=== PATIENT | female | born 1985 | race Caucasian/White ===

== ENCOUNTER 2018-08-20 06:55 | Emergency (ER) | payer OTHER ==
[2018-08-20 06:58] VITALS: BP 129/86
--- NOTE | 2018-08-20 07:22 | EDPHY ---
H & P Time Seen by Provider: 08/20/18 07:06 HPI/ROS: CHIEF COMPLAINT: Swollen throat HISTORY OF PRESENT ILLNESS: Patient was 1st diagnosed with strep throat 3 and half weeks ago was treated initially with amoxicillin but developed hives, and then was treated with azithromycin and felt better for 24-48 hours. Subsequently she developed a chest cold with coughing and wheezing and had a negative chest x-ray and a negative strep test by her report at urgent care, and was given albuterol last week. She still had a lot of coughing and then woke up about 30 min ago with swelling in her throat and a feeling that her uvula was larger. Symptoms moderate, not associated with hives or skin rash or itching. Slightly different voice. No fever or chills and no difficulty swallowing. Symptoms moderate. REVIEW OF SYSTEMS: Eye: no change in vision ENT: HPI no ear or dental symptoms Cardiac: no chest pain or syncope Pulmonary: HPI Abdomen: no vomiting, diarrhea, abdominal pain; some nausea Musculoskeletal: No leg swelling Skin: No hives Neuro: no headache Constitutional: no fever : no urinary symptoms A comprehensive 10 point review of systems is otherwise negative aside from elements mentioned in the history of present illness. PAST MEDICAL HISTORY: Includes splenectomy for ITP at 11 years old, she has had pneumococcal vaccine Social history: No recent foreign travel General Appearance: Alert and conversant, cooperative. Eyes: No scleral icterus. ENT, Mouth: Patient has uvular swelling but it is midline. There is no peritonsillar swelling. No stridor or drooling. Voice is slightly altered but not muffled. Dentition and gums are normal, tympanic membranes are normal. Respiratory: Patient has bilateral wheezing but no rhonchi or rales. No stridor. Cardiovascular: Regular rate and rhythm. Gastrointestinal: Abdomen is soft and non tender. Neurological: Alert, face symmetric, normal motor and sensory in extremities. Skin: No urticaria. Musculoskeletal: No peripheral edema. Psychiatric: Not agitated. Emergency Department course/MDM: Patient has isolated uvular swelling likely from all the severe coughing she has been doing. She does not have evidence of retropharyngeal abscess or epiglottitis, peritonsillar abscess, anaphylaxis. Steroids discussed and consented with the patient. Encouraged to use her albuterol inhaler. I do not think that she is likely to have an acute bacterial infection. Smoking Status: Current every day smoker Constitutional: Initial Vital Signs Temperature (C) 37.0 C 08/20/18 06:56 Heart Rate 93 08/20/18 06:56 Respiratory Rate 18 08/20/18 06:56 Blood Pressure 129/86 H 11 06:56 O2 Sat (%) 97 08/20/18 06:56 O2 Delivery Mode Room Air Allergies/Adverse Reactions: Penicillins Allergy (Verified 08/20/18 06:59) sulfamethoxazole [From Bactrim] Allergy (Verified 08/20/18 06:59) trimethoprim [From Bactrim] Allergy (Verified 08/20/18 06:59) Home Medications: Medication Instructions Recorded Albuterol 08/20/18 predniSONE [prednisone 20mg (RX)] 40 mg PO DAILY 4 Days tab 08/20/18 MDM/Departure - [facility] Medications Given: Discontinued Medications Prednisone (Prednisone) 60 mg PO EDNOW ONE Stop: 08/20/18 07:25 Last Admin: 08/20/18 07:31 Dose: 60 mg - Depart Disposition: Home, Routine, Self-Care Clinical Impression: Uvular swelling Condition: Good Instructions: Prednisone (By mouth), Uvulitis (ED) Additional Instructions: Use the albuterol inhaler 2 puffs every 6 hr for the next 3-5 days. Please return immediately if you have trouble breathing or swallowing. Prescriptions: predniSONE [prednisone 20mg (RX)] 40 mg PO DAILY 4 Days tab Referrals: Albert Gibson MD [Medical Doctor] - As per Instructions (24-48 hour followup if not improving)
[2018-08-20] MEDS ORDERED: predniSONE 20 MG TAB PO ONE (07:24)
== END 2018-08-20 07:50 | disposition home or self-care (01) ==
DX: K13.70 Unspecified lesions of oral mucosa (principal); F17.200 Nicotine dependence, unspecified, uncomplicated
CPT/HCPCS: J7512

== ENCOUNTER → 2019-03-01 | Outpatient (CLI) | payer OTHER | LOC: FIMAGING 09:26 | PROVIDERS: ATTEND Midwife | DX: O36.5920 Maternal care for other known or suspected poor fetal growth, second trimester, not applicable or unspecified (principal); O36.5120 Maternal care for known or suspected placental insufficiency, second trimester, not applicable or unspecified; O09.512 Supervision of elderly primigravida, second trimester; Z86.2 Personal history of diseases of the blood and blood-forming organs and certain disorders involving the immune mechanism; Z90.81 Acquired absence of spleen; Z3A.20 20 weeks gestation of pregnancy ==

== ENCOUNTER → 2019-04-01 | Outpatient (CLI) | payer OTHER | LOC: FIMAGING 10:58 ==